=== PATIENT | male | born 1975 | race Caucasian/White ===

== ENCOUNTER → 2022-03-13 14:00 | Outpatient (BNVA) | payer OTHER, SELFPAY | PROVIDERS: PCP Internal Medicine; Visit Provider Nurse Practitioner Psychiatric/Mental Health | DX: F10.20 Alcohol dependence, uncomplicated (principal) | CPT/HCPCS: 99212 ==

== ENCOUNTER → 2022-04-04 09:19 | Outpatient (BNVA) | payer OTHER, SELFPAY | PROVIDERS: PCP Internal Medicine; Visit Provider Nurse Practitioner Psychiatric/Mental Health | DX: F10.20 Alcohol dependence, uncomplicated (principal); Z51.81 Encounter for therapeutic drug level monitoring; Z79.899 Other long term (current) drug therapy | CPT/HCPCS: 80305; 99212 ==

== ENCOUNTER → 2022-04-18 09:19 | Outpatient (BNVA) | payer OTHER, SELFPAY | PROVIDERS: PCP Internal Medicine; Visit Provider Nurse Practitioner Psychiatric/Mental Health | DX: F10.20 Alcohol dependence, uncomplicated (principal); Z51.81 Encounter for therapeutic drug level monitoring; Z79.899 Other long term (current) drug therapy | CPT/HCPCS: 80305; 96372; 99212 ==

== ENCOUNTER → 2022-05-02 09:26 | Outpatient (BNVA) | payer OTHER, SELFPAY | PROVIDERS: PCP Internal Medicine; Visit Provider Nurse Practitioner Psychiatric/Mental Health | DX: Z51.81 Encounter for therapeutic drug level monitoring (principal); F10.20 Alcohol dependence, uncomplicated | CPT/HCPCS: 80305; 99212 ==

== ENCOUNTER → 2022-05-15 09:22 | Outpatient (BNVA) | payer OTHER, SELFPAY | PROVIDERS: PCP Internal Medicine; Visit Provider Nurse Practitioner Psychiatric/Mental Health | DX: Z51.81 Encounter for therapeutic drug level monitoring (principal); F10.20 Alcohol dependence, uncomplicated | CPT/HCPCS: 80305; 96372; 99212 ==

== ENCOUNTER → 2022-06-12 09:21 | Outpatient (BNVA) | payer OTHER, SELFPAY | PROVIDERS: PCP Internal Medicine; Visit Provider Nurse Practitioner Psychiatric/Mental Health | DX: Z51.81 Encounter for therapeutic drug level monitoring (principal); F10.20 Alcohol dependence, uncomplicated | CPT/HCPCS: 80305; 96372; 99212 ==

== ENCOUNTER → 2022-07-09 09:20 | Outpatient (BNVA) | payer OTHER, SELFPAY | PROVIDERS: PCP Internal Medicine; Visit Provider Nurse Practitioner Psychiatric/Mental Health | DX: Z51.81 Encounter for therapeutic drug level monitoring (principal); F10.20 Alcohol dependence, uncomplicated | CPT/HCPCS: 96372; 99212 ==

== ENCOUNTER → 2022-08-07 09:19 | Outpatient (BNVA) | payer OTHER, SELFPAY | PROVIDERS: PCP Internal Medicine; Visit Provider Nurse Practitioner Psychiatric/Mental Health | DX: F10.20 Alcohol dependence, uncomplicated (principal); Z51.81 Encounter for therapeutic drug level monitoring; Z79.899 Other long term (current) drug therapy | CPT/HCPCS: 96372; 99212 ==

== ENCOUNTER → 2022-09-04 09:18 | Outpatient (BNVA) | payer OTHER, SELFPAY | PROVIDERS: PCP Internal Medicine; Visit Provider Nurse Practitioner Psychiatric/Mental Health | DX: F10.20 Alcohol dependence, uncomplicated (principal) | CPT/HCPCS: 96372; 99212 ==

== ENCOUNTER → 2022-10-16 09:16 | Outpatient (BNVA) | payer OTHER, SELFPAY | PROVIDERS: PCP Internal Medicine; Visit Provider Nurse Practitioner Psychiatric/Mental Health | DX: F10.20 Alcohol dependence, uncomplicated (principal) | CPT/HCPCS: 96372; 99212 ==

== ENCOUNTER → 2022-11-13 09:16 | Outpatient (BNVA) | payer OTHER, SELFPAY | PROVIDERS: PCP Internal Medicine; Visit Provider Nurse Practitioner Psychiatric/Mental Health | DX: F10.20 Alcohol dependence, uncomplicated (principal); F32.A Depression, unspecified; Z51.81 Encounter for therapeutic drug level monitoring | CPT/HCPCS: 80305; 96372; 99212 ==

== ENCOUNTER → 2022-12-11 09:23 | Outpatient (BNVA) | payer OTHER, SELFPAY | PROVIDERS: PCP Internal Medicine; Visit Provider Nurse Practitioner Psychiatric/Mental Health | DX: F10.20 Alcohol dependence, uncomplicated (principal); Z51.81 Encounter for therapeutic drug level monitoring; Z79.899 Other long term (current) drug therapy; Z76.0 Encounter for issue of repeat prescription | CPT/HCPCS: 96372; 99212 ==

== ENCOUNTER → 2023-01-08 09:01 | Outpatient (BNVA) | payer OTHER, SELFPAY | PROVIDERS: PCP Internal Medicine; Visit Provider Nurse Practitioner Psychiatric/Mental Health | DX: F10.20 Alcohol dependence, uncomplicated (principal) | CPT/HCPCS: 96372; 99212 ==

== ENCOUNTER → 2023-02-05 09:20 | Outpatient (BNVA) | payer OTHER, SELFPAY | PROVIDERS: PCP Internal Medicine; Visit Provider Nurse Practitioner Psychiatric/Mental Health | DX: F10.20 Alcohol dependence, uncomplicated (principal) | CPT/HCPCS: 96372; 99212 ==

== ENCOUNTER 2023-03-12 09:18 | Outpatient (AMB) | payer OTHER, SELFPAY ==
--- NOTE | 2023-03-12 09:19 | A.OFFVIS_ITS ---
Intake Vital Signs 03/12/23 09:25 BP 116/78 Blood Pressure Location Lt radial Position Sitting Pulse 78 Pulse Source Pulse Oximeter Pulse Oximetry (%) 95 Oxygen Delivery Method Room Air Intake Visit Reasons: Allison Inj Intake Note: The patient presents for a allison inj Disaster Recovery Specialist Required: No Allergies No Known Allergies [No Known Allergies*] Allergy (Verified 03/12/23 09:26) Do you need a note to return to daycare/school/sports/work: No HPI Allison Inj HPI Details Patient presents for follow-up and Vivitrol injection. Continues to abstain from alcohol. Continues to attend meetings. 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 No questions or concerns at this time. Has not been taking a camper stay as that has not been in the pharmacy, does not wish to have it restarted at this time. [facility] Medical History (Updated 05/15/22 @ 10:07 by Erika Schofield CNP) Alcoholism Depression Surgical History History of eye surgery History of splenectomy Family History Father No problems noted. Mother No problems noted. Maternal Grandmother Diabetes Maternal Grandfather No problems noted. Paternal Grandmother Alzheimers disease Paternal Grandfather No problems noted. Sister Healthy adult Social History Housing: Condominium Alcohol intake: former Patient Tobacco Use Status: Never used Tobacco e-Cigarette/Vaping Use: Never Used Second Hand Smoke Exposure: No service: No Current occupational status: employed Cognitive needs: No Hearing needs: No Vision needs: Yes (glasses) Review of Systems Const Reports as per HPI and Reports no additional complaints Physical Exam Vital Signs: Last Vital Signs Pulse 78 03/12/23 09:25 BP 116/78 03/12/23 09:25 Pulse Ox 95 03/12/23 09:25 Oxygen Delivery Method Room Air 03/12/23 09:25 Const General: cooperative and no acute distress Psych Appearance: well kempt Speech and movement: Clear speech present Affect: normal affect Attitude: cooperative Thought process: Normal thought process present Thought content: Normal thought content present Insight: Good insight present (Psych) Office Meds Vivitrol ER Performing Provider: Erika Schofield CNP Administered by: Gris Montero on 03/12/23 09:54 Dose Route Admin Location Lot Number Expiration Date NDC Level Vial Inside Grinder 380 mg IM RG 2023-1011T 06/11/25 20847-165-82 [employer] Comments: T/W assessed for s/s of infection, no pain, no redness, no swelling, no exudate, no fever. Pt reminded to monitor for above and call [facility], pt tolerat ed injection. Assessment & Plan Assessment & Plan (1) Alcohol use disorder, moderate, dependence: Code(s): F10.20 - Alcohol dependence, uncomplicated Plan: * Tolerated injection * Follow-up 4 weeks Orders: Orders AMB Naltrexone Injection Patient Supplied Today F10.20 - Alcohol dependence, uncomplicated Medications: Discontinued disulfiram Discontinued Reason: Patient no longer taking 500 mg PO DAILY 30 tabs 5RF Coding Level of Care Code Est Pt Level 3 (03933) Diagnoses Alcohol use disorder, moderate, dependence F10.20
[2023-03-12 09:25] VITALS: BP 116/78; PULSE 78; O2SAT 95
== END 2023-03-12 10:06 | disposition home or self-care (01) ==
LOC: HO.HCC 09:18
PROVIDERS: PCP Internal Medicine; Visit Provider Nurse Practitioner Psychiatric/Mental Health
DX: F10.20 Alcohol dependence, uncomplicated (principal)
CPT/HCPCS: 99213; J2315

== ENCOUNTER → 2023-03-12 09:18 | Outpatient (BNVA) | payer OTHER, SELFPAY | PROVIDERS: PCP Internal Medicine; Visit Provider Nurse Practitioner Psychiatric/Mental Health | DX: F10.20 Alcohol dependence, uncomplicated (principal); Z51.81 Encounter for therapeutic drug level monitoring; Z79.899 Other long term (current) drug therapy | CPT/HCPCS: 96372; 99212 ==

== ENCOUNTER 2023-04-16 09:45 | Outpatient (AMB) | payer OTHER, SELFPAY ==
--- NOTE | 2023-04-16 09:50 | AM.OFFVISNUR ---
Intake Vital Signs 04/16/23 09:57 BP 118/78 Blood Pressure Location Lt radial Position Sitting Pulse 82 Pulse Source Pulse Oximeter Pulse Oximetry (%) 97 Oxygen Delivery Method Room Air Intake Visit Reasons: Allison Inj Intake Note: the patient presents for a allison inj Customer Counter Associate Required: No Allergies No Known Allergies [No Known Allergies*] Allergy (Verified 04/16/23 09:51) Do you need a note to return to daycare/school/sports/work: No Results AMB 14 Panel Urine Drug Screen Urine Marijuana (THC) Negative Last Edit by Cristal Devries CMA on 04/16/23 09:59 Urine Cocaine Negative Last Edit by Cristal Devries CMA on 04/16/23 09:59 Urine Morphine Negative Last Edit by Cristal Devries CMA on 04/16/23 09:59 Urine Methamphetamine Negative Last Edit by Cristal Devries CMA on 04/16/23 09:59 Urine Amphetamine Negative Last Edit by Cristal Devries CMA on 04/16/23 09:59 Urine Benzodiazepine Negative Last Edit by Cristal Devries CMA on 04/16/23 09:59 Urine Barbiturates Negative Last Edit by Cristal Devries CMA on 04/16/23 09:59 Urine Methadone Negative Last Edit by Cristal Devries CMA on 04/16/23 09:59 Urine Buprenorphine Negative Last Edit by Cristal Devries CMA on 04/16/23 09:59 Urine Tricyclic Antidepressant Negative Last Edit by Cristal Devries CMA on 04/16/23 09:59 Urine MDMA Negative Last Edit by Cristal Devries CMA on 04/16/23 09:59 Urine Oxycodone Negative Last Edit by Cristal Devries CMA on 04/16/23 09:59 Urine Phencyclidine Negative Last Edit by Cristal Devries CMA on 04/16/23 09:59 Urine Propoxyphene Negative Last Edit by Cristal Devries CMA on 04/16/23 09:59 Coding Diagnoses Assessment & Plan Assessment & Plan Orders: Orders AMB 14 Panel Urine Drug Screen Today Z51.81 - Encounter for therapeutic drug level monitoring
[2023-04-16 09:57] VITALS: BP 118/78; PULSE 82; O2SAT 97
== END 2023-04-16 10:31 | disposition home or self-care (01) ==
LOC: HO.HCC 09:45
PROVIDERS: PCP Internal Medicine
DX: F10.20 Alcohol dependence, uncomplicated (principal); Z51.81 Encounter for therapeutic drug level monitoring
CPT/HCPCS: J2315

== ENCOUNTER → 2023-04-16 09:45 | Outpatient (BNVA) | payer OTHER, SELFPAY | PROVIDERS: PCP Internal Medicine | DX: Z51.81 Encounter for therapeutic drug level monitoring (principal); F10.20 Alcohol dependence, uncomplicated | CPT/HCPCS: 80305; 96372 ==

== ENCOUNTER 2023-05-13 10:02 | Outpatient (AMB) | payer OTHER, SELFPAY ==
--- NOTE | 2023-05-13 10:03 | MHC.OFFVIS ---
Intake Intake Visit Reasons: Allison Inj Allergies No Known Allergies [No Known Allergies*] Allergy (Verified 04/16/23 09:51) [facility] Medical History (Updated 05/15/22 @ 10:07 by Erika Schofield CNP) Alcoholism Depression Surgical History History of splenectomy History of eye surgery Family History Father No problems noted. Mother No problems noted. Maternal Grandmother Diabetes Maternal Grandfather No problems noted. Paternal Grandmother Alzheimers disease Paternal Grandfather No problems noted. Sister Healthy adult Social History Housing: Condominium Alcohol intake: former Patient Tobacco Use Status: Never used Tobacco e-Cigarette/Vaping Use: Never Used Second Hand Smoke Exposure: No service: No Current occupational status: employed Cognitive needs: No Hearing needs: No Vision needs: Yes (glasses) Coding
[2023-05-13 10:07] VITALS: BP 114/72; PULSE 69; O2SAT 98
--- NOTE | 2023-05-13 10:08 | AM.OFFVISNUR ---
Intake Vital Signs 05/13/23 10:07 BP 114/72 Blood Pressure Location Lt radial Position Sitting Pulse 69 Pulse Source Pulse Oximeter Pulse Oximetry (%) 98 Oxygen Delivery Method Room Air Intake Visit Reasons: Allison Inj Intake Note: the patient presents for a allison Inj Wool Hat Flanger Required: No Allergies No Known Allergies [No Known Allergies*] Allergy (Verified 05/13/23 10:09) Do you need a note to return to daycare/school/sports/work: No Coding
== END 2023-05-13 10:50 | disposition home or self-care (01) ==
LOC: HO.HCC 10:02
PROVIDERS: PCP Internal Medicine
DX: F10.20 Alcohol dependence, uncomplicated (principal)
CPT/HCPCS: J2315

== ENCOUNTER → 2023-05-13 10:02 | Outpatient (BNVA) | payer OTHER, SELFPAY | PROVIDERS: PCP Internal Medicine | DX: Z51.81 Encounter for therapeutic drug level monitoring (principal); F10.20 Alcohol dependence, uncomplicated; Z79.899 Other long term (current) drug therapy | CPT/HCPCS: 96372 ==

== ENCOUNTER 2023-09-04 09:57 | Outpatient (AMB) | payer OTHER, SELFPAY ==
--- NOTE | 2023-09-04 10:02 | A.OFFVISCC_ITS ---
Intake Vital Signs 09/04/23 10:08 BP 122/70 Blood Pressure Location Lt radial Position Sitting Pulse 76 Pulse Source Pulse Oximeter Pulse Oximetry (%) 98 Oxygen Delivery Method Room Air Intake Visit Reasons: mat restart Intake Note: the patient presents for a mat restart Balance Wheel Hand Filer Required: No Allergies No Known Allergies [No Known Allergies*] Allergy (Verified 09/04/23 10:09) Do you need a note to return to daycare/school/sports/work: No HPI mat restart HPI Details Patient presents for AUD treatment follow up and injection. Last seen in May Traveling over the holidays Denies any alcohol use, but did notice a difference in sleep and thinking differently about alcohol . Still working, no longer on probation, working towards getting his license reinstated. [facility] Medical History (Updated 09/04/23 @ 11:34 by Erika Schofield CNP) Alcohol use disorder, moderate, dependence Alcoholism Depression Surgical History History of splenectomy History of eye surgery Family History Father No problems noted. Mother No problems noted. Maternal Grandmother Diabetes Maternal Grandfather No problems noted. Paternal Grandmother Alzheimers disease Paternal Grandfather No problems noted. Sister Healthy adult Social History Housing: Condominium Alcohol intake: former Patient Tobacco Use Status: Never used Tobacco e-Cigarette/Vaping Use: Never Used Second Hand Smoke Exposure: No service: No Current occupational status: employed Cognitive needs: No Hearing needs: No Vision needs: Yes (glasses) Review of Systems Const Reports as per HPI and Reports no additional complaints Physical Exam Vital Signs: Last Vital Signs Pulse 76 09/04/23 10:08 BP 122/70 09/04/23 10:08 Pulse Ox 98 09/04/23 10:08 Oxygen Delivery Method Room Air 09/04/23 10:08 Const General: cooperative and no acute distress Psych Appearance: well kempt Speech and movement: Clear speech present Affect: normal affect Attitude: cooperative Thought process: Normal thought process present Thought content: Normal thought content present Insight: Good insight present (Psych) Office Meds Vivitrol 380 mg intramuscular suspension,extended release Performing Provider: Erika Schofield CNP Performing Location: [facility] Administered by: Fany Hernandez RN on 09/04/23 10:29 Dose Route Admin Location Dispensed Lot Number Expiration Date [facility] Machine Burrer 380 mg IM LG 380 mg 2023-3013T 08/11/25 50745-307-28 [email or web address] Assessment & Plan Assessment & Plan (1) Alcohol use disorder, severe, in sustained remission: Code(s): F10.21 - Alcohol dependence, in remission Plan: * tolerated injection * refilled Disulfiram * follow up 4 weeks Orders: Orders AMB Naltrexone Injection Patient Supplied Today F10.20 - Alcohol dependence, uncomplicated Medications: New disulfiram 500 mg PO DAILY 90 tabs 3RF Refilled naltrexone microspheres ER (Vivitrol) 380 mg IM Q4W 1 ea 5RF naltrexone microspheres ER (Vivitrol) 380 mg IM Q4W 1 ea 5RF Coding Level of Care Code Est Pt Level 3 (64447) Diagnoses Alcohol use disorder, severe, in sustained remission F10.21
[2023-09-04 10:08] VITALS: BP 122/70; PULSE 76; O2SAT 98
== END 2023-09-04 10:38 | disposition home or self-care (01) ==
PROVIDERS: PCP Internal Medicine; Visit Provider Nurse Practitioner Psychiatric/Mental Health
DX: F10.20 Alcohol dependence, uncomplicated (principal); F10.21 Alcohol dependence, in remission
CPT/HCPCS: 99213

== ENCOUNTER → 2023-09-04 09:57 | Outpatient (BNVA) | payer OTHER, SELFPAY | PROVIDERS: PCP Internal Medicine; Visit Provider Nurse Practitioner Psychiatric/Mental Health | DX: F10.21 Alcohol dependence, in remission (principal); Z79.899 Other long term (current) drug therapy | CPT/HCPCS: 96372; 99212; J2315 ==

== ENCOUNTER 2023-10-01 09:56 | Outpatient (AMB) | payer OTHER, SELFPAY ==
--- NOTE | 2023-10-01 09:59 | AM.OFFVISNUR ---
Intake Vital Signs 10/01/23 10:23 BP 115/70 Blood Pressure Location Rt radial Position Sitting Intake Visit Reasons: Allison Inj Allergies No Known Allergies [No Known Allergies*] Allergy (Verified 09/04/23 10:09) Nursing Note Pt here for vivitrol injection, this is his second after taking a few months off. States cravings have decreased, did acknowledge that after last injection he felt more nauseas it lasted for 2 days and then didnt feel any side effects after. I encouraged him to reach out if this happens again, he verbally agrees. Pt was in good spirits, alert and oriented x4. Will follow up with RN visit for next injection in 4 weeks. Office Meds Vivitrol 380 mg intramuscular suspension,extended release Performing Provider: Erika Schofield CNP Performing Location: [facility] Administered by: Fany Hernandez RN on 10/01/23 10:19 Dose Route Admin Location Dispensed Lot Number Expiration Date [facility] Hand Outside Cutter 380 mg IM RG 380 mg [id number] 08/11/25 02008-927-70 [facility] Comments: Patient tolerated injection with no stated or noted side effects. He verbally agrees to call [facility] with any comments or concerns. Coding Assessment & Plan Assessment & Plan Orders: Orders AMB Naltrexone Injection Patient Supplied (NC) Today F10.21 - Alcohol dependence, in remission
[2023-10-01 10:23] VITALS: BP 115/70
== END 2023-10-01 11:00 | disposition home or self-care (01) ==
PROVIDERS: PCP Internal Medicine
DX: F10.21 Alcohol dependence, in remission (principal)

== ENCOUNTER → 2023-10-01 09:56 | Outpatient (BNVA) | payer OTHER, SELFPAY | PROVIDERS: PCP Internal Medicine | DX: F10.21 Alcohol dependence, in remission (principal); Z79.899 Other long term (current) drug therapy | CPT/HCPCS: 96372; J2315 ==

== ENCOUNTER 2023-10-29 09:57 | Outpatient (AMB) | payer OTHER, SELFPAY ==
--- NOTE | 2023-10-29 10:00 | AM.OFFVISNUR ---
Intake Vital Signs 10/29/23 10:11 BP 122/84 Blood Pressure Location Lt radial Position Sitting Pulse 87 Pulse Source Pulse Oximeter Pulse Oximetry (%) 97 Oxygen Delivery Method Room Air Intake Visit Reasons: Allison Inj Intake Note: the patient presents for a allison inj Heel Slicker Required: No Allergies No Known Allergies [No Known Allergies*] Allergy (Verified 10/29/23 10:12) Do you need a note to return to daycare/school/sports/work: No Nursing Note Patient in for injection , in good spirits, denies any breakthrough cravings, acknowledges recovery is going well . Office Meds Vivitrol 380 mg intramuscular suspension,extended release Performing Provider: Erika Schofield CNP Performing Location: [facility] Administered by: Fany Hernandez RN on 10/29/23 12:59 Dose Route Admin Location Dispensed Lot Number Expiration Date [facility] Dental Sales Representative 380 mg IM lg 380 mg 2023-1027T 12/09/25 28613-700-22 [employer] Coding Assessment & Plan Assessment & Plan Orders: Orders AMB Naltrexone Injection Patient Supplied (NC) Today F10.21 - Alcohol dependence, in remission
[2023-10-29 10:11] VITALS: BP 122/84; PULSE 87; O2SAT 97
== END 2023-10-29 10:20 | disposition home or self-care (01) ==
PROVIDERS: PCP Internal Medicine
DX: F10.21 Alcohol dependence, in remission (principal)

== ENCOUNTER → 2023-10-29 09:57 | Outpatient (BNVA) | payer OTHER, SELFPAY | PROVIDERS: PCP Internal Medicine | DX: F10.21 Alcohol dependence, in remission (principal); Z51.81 Encounter for therapeutic drug level monitoring; Z79.899 Other long term (current) drug therapy | CPT/HCPCS: 96372; J2315 ==

== ENCOUNTER 2023-11-26 10:00 | Outpatient (AMB) | payer OTHER, SELFPAY ==
--- NOTE | 2023-11-26 09:59 | AM.OFFVISNUR ---
Intake Vital Signs 11/26/23 10:02 BP 124/82 Blood Pressure Location Lt brachial Position Sitting Pulse 67 Pulse Source Pulse Oximeter Pulse Oximetry (%) 96 Oxygen Delivery Method Room Air Intake Visit Reasons: Allison Inj Allergies No Known Allergies [No Known Allergies*] Allergy (Verified 11/26/23 09:59) Nursing Note Patient in office today for monthly injection, patient is alert and oriented x4, in good spirits, smiling. Injection given in the Left Glute, with no stated or noted complications. He verbally agrees to call [facility] with any comments or questions. Office Meds Vivitrol 380 mg intramuscular suspension,extended release Performing Provider: Erika Schofield CNP Performing Location: [facility] Administered by: Fany Hernandez RN on 11/26/23 10:37 Dose Route Admin Location Dispensed Lot Number Expiration Date [facility] Lamp Cleaner 380 mg IM LG 380 mg 2023-3030T 01/09/26 45613-549-00 [employer] Coding Assessment & Plan Assessment & Plan Orders: Orders AMB Naltrexone Injection Patient Supplied (NC) Today F10.21 - Alcohol dependence, in remission Medications: New Vivitrol ER (naltrexone microspheres) 380 mg IM ONCE 1 ea 0RF NS F10.21 - Alcohol dependence, in remission
[2023-11-26 10:02] VITALS: BP 124/82; PULSE 67; O2SAT 96
== END 2023-11-26 10:26 | disposition home or self-care (01) ==
PROVIDERS: PCP Internal Medicine
DX: F10.21 Alcohol dependence, in remission (principal)

== ENCOUNTER → 2023-11-26 10:00 | Outpatient (BNVA) | payer OTHER, SELFPAY | PROVIDERS: PCP Internal Medicine | DX: F10.21 Alcohol dependence, in remission (principal); Z79.899 Other long term (current) drug therapy | CPT/HCPCS: 96372; J2315 ==

== ENCOUNTER 2023-12-24 10:03 | Outpatient (AMB) | payer OTHER, SELFPAY ==
--- NOTE | 2023-12-24 10:06 | MHC.AM.SUB ---
Vital Signs 12/24/23 10:08 BP 128/84 Blood Pressure Location Lt brachial Position Sitting Pulse 91 Pulse Source Pulse Oximeter Pulse Oximetry (%) 97 Oxygen Delivery Method Room Air Intake Visit Reasons: MAT/Allison inj Allergies No Known Allergies [No Known Allergies*] Allergy (Verified 11/26/23 09:59) HPI HPI MAT/Allison inj: Details: Patient presents for AUD follow up and vivitrol injection Bright affect--working towards getting his license back--has a car, needs to have breathalyzer installed still working did not restart disulfiram--pharmacy did not have in stock feels well supported no questions or concerns at this time [facility] Medical History (Updated 12/24/23 @ 15:20 by Erika Schofield CNP) Alcohol use disorder, moderate, dependence Alcoholism Depression Surgical History History of splenectomy History of eye surgery Family History Father No problems noted. Mother No problems noted. Maternal Grandmother Diabetes Maternal Grandfather No problems noted. Paternal Grandmother Alzheimers disease Paternal Grandfather No problems noted. Sister Healthy adult Social History Housing: Condominium Alcohol intake: former Patient Tobacco Use Status: Never used Tobacco e-Cigarette/Vaping Use: Never Used Second Hand Smoke Exposure: No service: No Current occupational status: employed Cognitive needs: No Hearing needs: No Vision needs: Yes (glasses) Review of Systems Const Reports as per HPI and Reports no additional complaints Physical Exam Vital Signs: Last Vital Signs Pulse 91 12/24/23 10:08 BP 128/84 12/24/23 10:08 Pulse Ox 97 12/24/23 10:08 Oxygen Delivery Method Room Air 12/24/23 10:08 Const General: cooperative, healthy appearing and well groomed Nutritional Appearance: average body habitus Orientation/consciousness: patient oriented x3 Limitations: no limitations Neuro General: patient oriented x3 Office Meds Vivitrol 380 mg intramuscular suspension,extended release Performing Provider: Erika Schofield CNP Performing Location: [facility] Administered by: Fany Hernandez RN on 05/14/24 10:28 Dose Route Admin Location Dispensed Lot Number Expiration Date NDC Plant Maintenance Technician 380 mg IM RG 380 mg 2023-1033T 03/11/26 07754-600-25 Motorpaneer Assessment & Plan Assessment & Plan (1) Alcohol use disorder, severe, in sustained remission: Code(s): F10.21 - Alcohol dependence, in remission Category: Medical Plan: tolerated injection follow up 4 weeks Orders: Orders AMB Naltrexone Injection Patient Supplied (NC) Today F10.21 - Alcohol dependence, in remission
[2023-12-24 10:08] VITALS: BP 128/84; PULSE 91; O2SAT 97
== END 2023-12-24 10:49 | disposition home or self-care (01) ==
PROVIDERS: PCP Internal Medicine; Visit Provider Nurse Practitioner Psychiatric/Mental Health
DX: F10.21 Alcohol dependence, in remission (principal)
CPT/HCPCS: 99213

== ENCOUNTER → 2023-12-24 10:03 | Outpatient (BNVA) | payer OTHER, SELFPAY | PROVIDERS: PCP Internal Medicine; Visit Provider Nurse Practitioner Psychiatric/Mental Health | DX: F10.21 Alcohol dependence, in remission (principal) | CPT/HCPCS: 96372; 99212; J2315 ==

== ENCOUNTER 2024-02-04 10:04 | Outpatient (AMB) | payer OTHER, SELFPAY ==
--- NOTE | 2024-02-04 10:21 | AM.OFFVISNUR ---
Intake Intake Visit Reasons: Allison Inj Allergies No Known Allergies [No Known Allergies*] Allergy (Verified 11/26/23 09:59) Nursing Note Patient here today in clinic for injection. Pt is alert and oriented x4, in good spirits, speaking in clear/full sentences. Denies any complications with previous injection. Acknowledges recovery is going well. Injection given in the RG, no complications noted or stated, will follow up with RN for injection in 4 weeks. Office Meds Vivitrol 380 mg intramuscular suspension,extended release Performing Provider: Erika Schofield CNP Performing Location: [facility] Administered by: Fany Hernandez RN on 02/04/24 10:22 Dose Route Admin Location Dispensed Lot Number Expiration Date [facility] Nursery Nurse 380 mg IM RG 380 mg 2023-3027T 01/09/25 80708-118-51 [employer] Coding Assessment & Plan Assessment & Plan Orders: Orders AMB Naltrexone Injection Patient Supplied (NC) Today F10.21 - Alcohol dependence, in remission Medications: New Vivitrol ER (naltrexone microspheres) 380 mg IM ONCE 1 ea 0RF NS F10.21 - Alcohol dependence, in remission
== END 2024-02-04 10:18 | disposition home or self-care (01) ==
PROVIDERS: PCP Internal Medicine
DX: F10.21 Alcohol dependence, in remission (principal)

== ENCOUNTER → 2024-02-04 10:04 | Outpatient (BNVA) | payer OTHER, SELFPAY | PROVIDERS: PCP Internal Medicine | DX: F10.21 Alcohol dependence, in remission (principal); Z79.899 Other long term (current) drug therapy | CPT/HCPCS: 96372; J2315 ==

== ENCOUNTER 2024-03-03 10:02 | Outpatient (AMB) | payer OTHER, SELFPAY ==
--- NOTE | 2024-03-03 10:07 | AM.OFFVISNUR ---
Intake Visit Reasons: Allison Inj Allergies No Known Allergies [No Known Allergies*] Allergy (Verified 11/26/23 09:59) Nursing Note Patient to clinic today for vivitrol injection. He is alert and oriented x4, in good spirits, speaking in clear/full sentences. Denies any complications and or concerns with previous injection. Todays injection given in the LG per orders with no stated or noted concerns. 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 Will follow up for injection in 4 weeks with RN. Patient verbally understands to call [facility] with any questions or concerns. Office Meds Vivitrol 380 mg intramuscular suspension,extended release Performing Provider: Erika Schofield CNP Performing Location: [facility] Administered by: Fany Hernandez RN on 03/03/24 10:08 Dose Route Admin Location Dispensed Lot Number Expiration Date [facility] Restaurant Floor Manager 380 mg IM LG 380 mg 2024-1013T 06/11/26 50890-841-78 [employer] Assessment & Plan Assessment & Plan Orders: Orders AMB Naltrexone Injection Patient Supplied (NC) Today F10.21 - Alcohol dependence, in remission
== END 2024-03-03 14:08 | disposition home or self-care (01) ==
PROVIDERS: PCP Internal Medicine
DX: F10.21 Alcohol dependence, in remission (principal)

== ENCOUNTER → 2024-03-03 10:02 | Outpatient (BNVA) | payer OTHER, SELFPAY | PROVIDERS: PCP Internal Medicine | DX: F10.21 Alcohol dependence, in remission (principal) | CPT/HCPCS: 96372; J2315 ==